=== PATIENT | female | born 2005 | race Caucasian/White ===

== ENCOUNTER 2023-03-03 17:33 | Emergency (ER) | payer BC ==
[2023-03-03] MEDS ORDERED: FAMOTIDINE 20 MG/2 ML VIAL IV ONE (18:07)
[2023-03-03] MEDS ORDERED: NA CHLORIDE 0.9% 1,000 ML ONE (18:07)
[2023-03-03] MEDS ORDERED: ONDANSETRON 4 MG/2 ML VIAL ONE (18:07)
[2023-03-03] MEDS ORDERED: DIPHENHYDRAMINE 50 MG/ML VIAL ONE (18:07)
[2023-03-03 18:14] LABS: Specific Gravity 1.028 (1.005-1.030)
[2023-03-03 18:15] LABS: Absolute Lymphocytes (CBC) 2.8 K/uL (0.7-4.9); Hematocrit 39.9 % (36.0-45.0); Lymphocytes % 24.7 % (15.3-44.8); MCV 89.6 fL (80-100); MPV 8.2 fL (7.6-11.3); RBC Red Blood Cell Count 4.45 M/uL (3.86-4.86)
[2023-03-03 18:16] LABS: Protime INR 1.03
[2023-03-03 18:21] LABS: Specific Gravity 1.029 (1.005-1.030); Urine Bacteria <20 /HPF (<20); Urine Bilirubin NEGATIVE (Negative); Urine Blood Trace (Negative); Urine Clarity Extremely Turbid (Clear); Urine Color Yellow (Yellow); Urine Glucose NEGATIVE (Negative); Urine Mucus Slight /HPF (None Seen); Urine Protein TRACE (Negative); Urine Urobilinogen Normal (Normal)
[2023-03-03 18:23] LABS: Barbiturates NEGATIVE (NEGATIVE); Benzodiazepines NEGATIVE (NEGATIVE); Cocaine NEGATIVE (NEGATIVE); METHAMPHETAM NEGATIVE (NEGATIVE); Methadone NEGATIVE (NEGATIVE); Opiates NEGATIVE (NEGATIVE); Phencyclidine NEGATIVE (NEGATIVE); THC Cannibis POSITIVE (NEGATIVE)
[2023-03-03 18:30] LABS: ALT/SGPT 29 U/L (13-56); AST/SGOT 17 U/L (15-37); Albumin 3.5 g/dL (3.4-5.0); Alkaline Phosphatase 60 U/L (45-117); BUN Blood Urea Nitrogen 18 mg/dL (7-18); Bicarbonate 28 mEq/L (21-32); Bilirubin Total 0.4 mg/dL (0.2-1.0); Glomerular Filtration Rate 92 ml/min (=/>90); Glucose Level 99 mg/dL (74-106); Magnesium 2.1 mg/dL (1.6-2.4); Protein, Total 7.5 g/dL (6.4-8.2); Sodium Level 137 mEq/L (136-145)
[2023-03-03 18:31] LABS: Bilirubin Direct < 0.1 mg/dL (0-0.2); Bilirubin Indirect, Calculated ND mg/dL (0.2-0.8)
[2023-03-03] MEDS ORDERED: MECLIZINE HCL 12.5 MG TAB ONE (19:04)
--- NOTE | 2023-03-03 20:24 | RAD REPORT ---
EXAM DESCRIPTION: CT - Head Brain Wo Cont - 03/03/2023 8:14 pm CLINICAL HISTORY: DIZZINESS Headache, drowsiness COMPARISON: <Comparisons> TECHNIQUE: All CT scans are performed using dose optimization technique as appropriate and may inclu de automated exposure control or mA/KV adjustment according to patient size. FINDINGS: No intracranial hemorrhage, hydrocephalus or extra-axial fluid collection.No areas of brai n edema or evidence of midline shift. The paranasal sinuses and mastoids are clear. The calvarium is intact. IMPRESSION: No acute intracranial abnormality.
--- NOTE | 2023-03-03 20:36 | ER ---
Nurse's Notes [facility] Name: Angela Myrick Age: 17 yrs Sex: Female : 2005 Arrival Date: 03/03/2023 Time: 17:33 Bed 5 Private MD: Diagnosis: Dizziness and giddiness;Nausea with vomiting, unspecified Presentation: 03/03 17:47 Chief complaint: Patient states: dizziness and feeling "shaky" that began approximately ss 1 hour ago. Pt is concerned and just wanting to make sure it's not an adverse effect of her home medications. Coronavirus screen: Client denies travel out of the [place] in the last 14 days. Ebola Screen: Patient denies exposure to infectious person. Patient denies travel to an Ebola-affected area in the 21 days before illness onset. 17:47 Method Of Arrival: Ambulatory ss 17:53 Initial Sepsis Screen: Does the patient meet any 2 criteria? No. Patient's initial ml4 sepsis screen is negative. Does the patient have a suspected source of infection? No. Patient's initial sepsis screen is negative. Risk Assessment: Do you want to hurt yourself or someone else? Patient reports no desire to harm self or others. Onset of symptoms. Care prior to arrival: None. Activity prior to arrival: None. 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 - Social history:: Smoking status: Reported history of juuling and/or vaping. Patient uses street drugs, marijuana, Patient/guardian denies using IV drugs. Screenin:48 [facility] ED Fall Risk Assessment (Adult) History of falling in the last 3 months, ml4 including since admission No falls in past 3 months (0 pts) Confusion or Disorientation No (0 pts) Intoxicated or Sedated No (0 pts) Impaired Gait No (0 pts) Mobility Assist Device Used No (0 pt) Altered Elimination No (0 pt) Score/Fall Risk Level 0 - 2 = Low Risk. Abuse screen: Denies threats or abuse. Nutritional screening: No deficits noted. Tuberculosis screening: No symptoms or risk factors identified. Assessment: 17:50 Reassessment: Patient appears in no apparent distress at this time. General: Appears in ml4 no apparent distress. comfortable, well groomed, Behavior is calm, cooperative, appropriate for age. Pain: Denies pain. Neuro: Level of Consciousness is awake, alert, obeys commands, Oriented to person, place, time, situation, Appropriate for age Gait is steady, Speech is normal, Facial symmetry appears normal, Pupils are PERRLA, Reports dizziness. Cardiovascular: No deficits noted. Capillary refill < 3 seconds Patient's skin is warm and dry. Respiratory: No deficits noted. Respiratory effort is even, unlabored, Respiratory pattern is regular, symmetrical. GI: No deficits noted. Abd is soft and non tender Reports nausea, vomiting, Patient currently denies abdominal pain, diarrhea. GI: Abdomen is obese. : No deficits noted. No signs and/or symptoms were reported regarding the genitourinary system. EENT: No deficits noted. No signs and/or symptoms were reported regarding the EENT system. Derm: No deficits noted. No signs and/or symptoms reported regarding the dermatologic system. Musculoskeletal: No deficits noted. No signs and/or symptoms reported regarding the musculoskeletal system. 18:22 Reassessment: orthostatics completed; pt stated dizziness upon sitting and standing vg1 next to bed; provider notified. Vital Signs: 17:47 Pulse 79; Resp 14; Temp 99.6(TE); Pulse Ox 99% on R/A; Weight 81.65 kg; Height 5 ft. 3 ss in. ; Pain 0/10; 17:49 Pulse 90; Resp 18; Pulse Ox 98% ; Pain 0/10; ml4 17:51 BP 119 / 68; zm 18:13 BP 110 / 65 Supine; Pulse 66; vg1 18:15 BP 119 / 79 Sitting; Pulse 67; vg1 18:17 BP 120 / 72 Standing; Pulse 68; vg1 20:20 BP 106 / 84; Pulse 71; Resp 15; Pulse Ox 99% on R/A; ll3 20:50 BP 106 / 84; Pulse 64; Resp 19; Pulse Ox 100% on R/A; kd3 17:47 Body Mass Index 31.89 (81.65 kg, 160.02 cm) ss 17:47 Pain Scale: Adult ss 17:49 Pain Scale: Adult ml4 Rickreall Coma Score: 17:49 Eye Response: spontaneous(4). Motor Response: obeys commands(6). Verbal Response: ml4 oriented(5). Total: 15. ED Course: 17:37 Patient arrived in ED. [id number] 17:40 SETH CasperIII, Denzel, RN is Primary Nurse. ml4 17:40 Jose Carlos Peralta PA is PHCP. cp 17:40 Charbel Estrada MD is Attending Physician. cp 17:48 Patient has correct armband on for positive identification. Placed in gown. Bed in low ml4 position. Call light in reach. Side rails up X 1. Adult w/ patient. Pulse ox on. NIBP on. Warm blanket given. Head of bed elevated. 17:48 No provider procedures requiring assistance completed. ml4 17:53 Triage completed. ml4 18:10 No apparent distress. Awaiting lab results. ml4 18:10 Initial lab(s) drawn, by me, sent to lab. Urine collected:. Inserted saline lock: 20 ml4 gauge in left antecubital area, using aseptic technique. Patient maintains SpO2 saturation greater than 95% on room air. 18:11 EKG completed in triage. Results shown to MD. Urine obtained. Labs ordered per ml4 protocol. Drawn by ED staff. 18:11 Arm band placed on right wrist. ml4 19:33 Primary Nurse role handed off by SETH CasperIII, Denzel, RN 20:09 Lidia Stevenson, RN is Primary Nurse. kd3 20:16 CT Head Brain wo Cont In Process Unspecified. EDMS 20:50 IV discontinued, intact, bleeding controlled, No redness/swelling at site. Pressure kd3 dressing applied. Administered Medications: 18:09 Drug: NS 0.9% IV 1000 ml Route: IV; Rate: 1 bolus; Site: left antecubital; ml4 20:51 Follow up: IV Status: Completed infusion; IV Intake: 900ml kd3 18:09 Drug: diphenhydrAMINE IVP 25 mg Route: IVP; Site: left antecubital; ml4 20:51 Follow up: Response: No adverse reaction kd3 18:09 Drug: Ondansetron IVP 4 mg Route: IVP; Site: left antecubital; ml4 20:50 Follow up: Response: No adverse reaction; Nausea is decreased kd3 18:09 Drug: Famotidine IVP 20 mg Route: IVP; Site: left antecubital; ml4 20:50 Follow up: Response: No adverse reaction kd3 18:56 Drug: Meclizine PO 25 mg Route: PO; ml4 20:50 Follow up: Response: No adverse reaction kd3 Medication: 17:49 VIS not applicable for this client. ml4 Intake: 20:51 IV: 900ml; Total: 900ml. kd3 Outcome: 20:35 Discharge ordered by MD. cp 20:50 Discharged to home ambulatory. kd3 20:50 Condition: stable 20:50 Discharge instructions given to patient, Instructed on discharge instructions, follow up and referral plans. medication usage, Demonstrated understanding of instructions, follow-up care, medications, Prescriptions given X 2. 20:51 Patient left the ED. kd3 Signatures: Dispatcher [employer] EDMS Lacey Fisher, RN RN Jose Carlos Andino PA PA cp Garcia, Victoria, RN RN vg1 Fernanda Ca Jennifer [email or web address] Melany Fulton RN RN ll3 Lidia Stevenson RN RN kd3 Mckenna Short RNIII, Denzel, RN RN ml4
--- NOTE | 2023-03-03 20:36 | EDPHYS ---
Physician Documentation [facility] Name: Angela Myrick Age: 17 yrs Sex: Female : 2005 Arrival Date: 03/03/2023 Time: 17:33 Bed 5 Private MD: ED Physician Charbel Estrada HPI: 03/03 17:55 This 17 yrs old Female presents to ER via Ambulatory with complaints of Dizziness, cp Nausea/Vomiting. 17:55 The patient presents with dizziness, feeling faint, lightheadedness, "feeling shaky". cp Onset: The symptoms/episode began/occurred 1 hour(s) ago. 17:55 Context: just prior to the episode the patient experienced no apparent symptoms. cp Associated signs and symptoms: Pertinent positives: nausea, vomiting, Pertinent negatives: abdominal pain, chest pain, focal weakness, head injury, numbness. Severity of symptoms: in the emergency department the symptoms are unchanged. Patient's baseline: Neuro: alert and fully oriented, Motor: no deficits, Ambulation: walks without assistance, Speech: normal. 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 - Social history:: Smoking status: Reported history of juuling and/or vaping. Patient uses street drugs, marijuana, Patient/guardian denies using IV drugs. ROS: 18:00 Constitutional: Negative for body aches, chills, fever, poor PO intake. cp 18:00 Eyes: Negative for injury, pain, redness, and discharge. cp 18:00 Cardiovascular: Negative for chest pain, edema. 18:00 Respiratory: Negative for cough, shortness of breath, wheezing. 18:00 Abdomen/GI: Positive for nausea and vomiting, Negative for abdominal pain, diarrhea, constipation. 18:00 Neuro: Positive for dizziness. 18:00 ENT: Negative for drainage from ear(s), ear pain, sore throat, difficulty swallowing, cp difficulty handling secretions. 18:00 : Negative for urinary symptoms. 18:00 All other systems are negative. cp Exam: 18:10 Constitutional: The patient appears in no acute distress, alert, awake, non-toxic, well cp developed, well nourished, overweight 18:10 Head/Face: Normocephalic, atraumatic. cp 18:10 Eyes: Periorbital structures: appear normal, Pupils: equal, round, and reactive to light and accomodation, Extraocular movements: intact throughout, Conjunctiva: normal, no exudate, no injection, Sclera: no appreciated abnormality, Lids and lashes: appear normal, bilaterally. 18:10 ENT: External ear(s): are unremarkable, Nose: is normal, Mouth: Lips: moist, Oral mucosa: moist, Posterior pharynx: Airway: no evidence of obstruction, patent. 18:10 Neck: ROM/movement: is normal, is supple, without pain, no range of motions limitations. 18:10 Chest/axilla: Inspection: normal. 18:10 Cardiovascular: Rate: normal, Rhythm: regular, Edema: is not appreciated, JVD: is not appreciated. 18:10 Respiratory: the patient does not display signs of respiratory distress, Respirations: normal, no use of accessory muscles, no retractions, labored breathing, is not present, Breath sounds: are clear throughout, no decreased breath sounds, no stridor, no wheezing. 18:10 Abdomen/GI: Exam negative for discomfort, distension, guarding, Inspection: abdomen appears normal. 18:10 Neuro: Orientation: to person, place \\T\\ time. Mentation: is normal, Cerebellar function: Romberg testing is negative, Motor: moves all fours, strength is normal, Sensation: is normal, Gait: is steady, at a normal pace, without difficulty. 18:35 ECG was reviewed by the Attending Physician. cp Vital Signs: 17:47 Pulse 79; Resp 14; Temp 99.6(TE); Pulse Ox 99% on R/A; Weight 81.65 kg; Height 5 ft. 3 ss in. ; Pain 0/10; 17:49 Pulse 90; Resp 18; Pulse Ox 98% ; Pain 0/10; ml4 17:51 BP 119 / 68; zm 18:13 BP 110 / 65 Supine; Pulse 66; vg1 18:15 BP 119 / 79 Sitting; Pulse 67; vg1 18:17 BP 120 / 72 Standing; Pulse 68; vg1 20:20 BP 106 / 84; Pulse 71; Resp 15; Pulse Ox 99% on R/A; ll3 20:50 BP 106 / 84; Pulse 64; Resp 19; Pulse Ox 100% on R/A; kd3 17:47 Body Mass Index 31.89 (81.65 kg, 160.02 cm) ss 17:47 Pain Scale: Adult ss 17:49 Pain Scale: Adult ml4 Gregory Coma Score: 17:49 Eye Response: spontaneous(4). Motor Response: obeys commands(6). Verbal Response: ml4 oriented(5). Total: 15. MDM: 17:40 Patient medically screened. 18:00 Differential diagnosis: cardiac arrhythmia, hypovolemia, idiopathic dizziness, cp , vertigo, UTI. 20:35 Data reviewed: vital signs, nurses notes, lab test result(s), EKG, radiologic studies, cp CT scan. 20:35 I considered the following discharge prescriptions or medication management in the emergency department Medications were administered in the Emergency Department. See MAR. Counseling: I had a detailed discussion with the patient and/or guardian regarding: the historical points, exam findings, and any diagnostic results supporting the discharge/admit diagnosis, lab results, radiology results, to return to the emergency department if symptoms worsen or persist or if there are any questions or concerns that arise at home. Response to treatment: the patient's symptoms have markedly improved after treatment, and as a result, I will discharge patient. 03/03 17:52 Order name: Basic Metabolic Panel; Complete Time: 18:38 03/03 18:46 Interpretation: Reviewed. 03/03 17:52 Order name: CBC with Diff; Complete Time: 18:38 03/03 18:39 Interpretation: Normal except: WBC 11.30. 03/03 17:52 Order name: LFT's; Complete Time: 18:38 03/03 18:45 Interpretation: Normal except: GLOB 4.0; A/G 0.9. 03/03 17:52 Order name: Magnesium; Complete Time: 18:38 03/03 17:52 Order name: PT-INR; Complete Time: 18:38 03/03 17:52 Order name: Urinalysis W/Microscopic; Complete Time: 18:38 03/03 18:39 Interpretation: Normal except: [facility] Extremely Turbid; UBLD Trace; UPROT TRACE; UESTR cp 75; URBC 5-10; SQEPI 20-50; ANABELLA Cx 1+. 03/03 17:52 Order name: PREGU; Complete Time: 18:38 cp 03/03 17:52 Order name: UDS; Complete Time: 18:38 cp 03/03 18:39 Interpretation: Normal except: THC POSITIVE. cp 03/03 18:46 Order name: CT Head Brain wo Cont; Complete Time: 20:32 cp 03/03 17:52 Order name: EKG; Complete Time: 17:53 cp 03/03 17:52 Order name: Orthostatics; Complete Time: 18:21 cp 03/03 17:52 Order name: Cardiac monitoring; Complete Time: 18:09 cp 03/03 17:52 Order name: EKG - Nurse/Tech; Complete Time: 18:58 cp 03/03 17:52 Order name: IV Saline Lock; Complete Time: 18:09 cp 03/03 17:52 Order name: Labs collected and sent; Complete Time: 18:09 cp 03/03 17:52 Order name: O2 Per Protocol; Complete Time: 18:09 cp 03/03 17:52 Order name: O2 Sat Monitoring; Complete Time: 18:09 cp 03/03 17:52 Order name: Accucheck Blood Glucose; Complete Time: 18:09 cp EC:35 Rate is 63 beats/min. Rhythm is regular. VA interval is normal. QRS interval is normal. cp QT interval is normal. T waves are Inverted in lead aVR. Interpreted by me. Reviewed by me. Administered Medications: 18:09 Drug: NS 0.9% IV 1000 ml Route: IV; Rate: 1 bolus; Site: left antecubital; ml4 20:51 Follow up: IV Status: Completed infusion; IV Intake: 900ml kd3 18:09 Drug: diphenhydrAMINE IVP 25 mg Route: IVP; Site: left antecubital; ml4 20:51 Follow up: Response: No adverse reaction kd3 18:09 Drug: Ondansetron IVP 4 mg Route: IVP; Site: left antecubital; ml4 20:50 Follow up: Response: No adverse reaction; Nausea is decreased kd3 18:09 Drug: Famotidine IVP 20 mg Route: IVP; Site: left antecubital; ml4 20:50 Follow up: Response: No adverse reaction kd3 18:56 Drug: Meclizine PO 25 mg Route: PO; ml4 20:50 Follow up: Response: No adverse reaction kd3 Disposition Summary: 03/03/23 20:35 Discharge Ordered Location: Home cp Problem: new cp Symptoms: have improved cp Condition: Stable cp Diagnosis - Dizziness and giddiness cp - Nausea with vomiting, unspecified cp Followup: cp - With: Private Physician - When: 2 - 3 days - Reason: Recheck today's complaints Discharge Instructions: - Discharge Summary Sheet cp - Dizziness cp - Nausea and Vomiting, Adult cp - Form - Excuse from Work, School, or Physical Activity cp Forms: - Medication Reconciliation Form cp - Thank You Letter cp - Antibiotic Education cp - Prescription Opioid Use cp Prescriptions: - Meclizine 25 mg Oral Tablet - take 1 tablet by ORAL route every 8 hours As needed; 30 tablet; Refills: 0, cp Product Selection Permitted - Zofran 4 mg Oral Tablet - take 1 tablet by ORAL route every 12 hours As needed; 20 tablet; Refills: 0, cp Product Selection Permitted Addendum: 03/05/2023 20:03 Co-signature as Attending Physician, Charbel Estrada MD I reviewed the patient's care r n provided by the Advanced Practice Provider and agree with the diagnosis and treatment plan. Signatures: Dispatcher [employer] Charbel Felix MD MD rn Page, Corey, PA PA cp Lembo, RNIII, SETH Mahoney RN ml4 Lidia Stevenson RN kd3
[2023-03-03 21:02] VITALS: TEMP 99.6
[2023-03-03 21:22] VITALS: BP 106/84
[2023-03-03 21:24] VITALS: O2SAT 100
--- NOTE | 2023-03-05 17:53 | EKG ---
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
== END 2023-03-03 20:51 | disposition home or self-care (01) ==
LOC: ER 17:33
DX: R11.2 Nausea with vomiting, unspecified (principal)
CPT/HCPCS: 96361; 93005; 85025; 81001; 80048; 36415; 83735; 81025; 85610; 80076; 80307; 70450; 96375; 96374; 99285; J8597; J1200; J2405; J7030

== ENCOUNTER 2024-09-08 13:57 | Emergency (ER) | payer BC ==
--- OUTSIDE RECORDS SUMMARY | 2024-09-08 14:01 | XMS REPORT | Continuity of Care Document ---
Author Name Unknown Address [address] [facility] [place] [address] [facility] Address [address] [facility] [place] [address] Care Team Providers Care Public Housing Interviewer Name Role Phone Pcp, Patient Does Not Have A Primary Care Physic guicho ELVA MCBRIDE Attending Clinician MEGAN Smith Attending Clinician KATHERINE Myers Attending Clinician KATHERINE León Attending Clinician Katherine León MD Attending Clinician [phone]- [phone] KARLA ALMEIDA Attending Clinician Unavailable KARLA ALMEIDA Attending Clinician Unavailable Elva Mcbride CNM Attending Clinician AVELINA_GCBZW_Kagonzaloyala_S Attending Clinician Unavaila ble GC_DOCC_Iman Attending Clinician Unavail able GC_GCBZW_Kadiyala_S Admitting Clinician Unavaila ble AVELINA_DOCC_Iman Admitting Clinician Unavail able Payers Payer Name Policy Type Policy Number Effective Date Expirati on Date Source [employer] OUT OF [place] [id number] 2021 00:[id number] 2021 00[place]00[place] [id number] 2021 00:00:00 Problems Condition Name Condition Details Condition Category Status Onset Date Resolution Date Last Treatment Date Treating Clinician Comments Source Morbid obesity Morbid obesity Disease Active 05-29 00:00: 00 [facility] Anxiety and depression Anxiety and depression Disease Active 05-27 00:00: 00 [facility] Allergies, Adverse Reactions, Alerts Allergy Name Allergy Type Status Severity Reaction(s) Onset Date Inactive Date Treating Clinician Comments Source NO KNOWN ALLERGIE S Drug Class Active [facility] Social History Social Habit Start Date Stop Date Quantity Comments Source [facility] Tobacco use and exposure 2024-05-27 00:00:00 2024-05-27 00:00:00 Smokeless tobacco non-user [facility] Alcoholic beverage intake 2024-05-27 00:00:00 2024-05-27 00:00:00 Current drinker of alcohol (finding) [facility] History of Social function 2024-05-27 00:00:00 2024-05-27 00:00:00 [facility] Alcohol Comment 2024-05-27 00:00:00 2024-05-27 00:00:00 socially [facility] Sex assigned at 2005 00:00:00 2005 00:00:00 [facility] Smoking Status Start Date Stop Date Source Never smoked tobacco [facility] Immunizations Ordered Immunization Name Filled Immunization Name Date Status Comments Source HPV9 2024-05-27 00:00:00 Completed [facility] HPV9 2023-10-23 00:00:00 Completed [facility] HPV9 Unknown Completed [facility] Vital Signs Vital Name Observation Time Observation Value Comments S silas Systolic blood pressure 2024-05-27 20:28:00 133 mm[Hg] [facility] Diastolic blood pressure 2024-05-27 20:28:00 86 mm[Hg] [facility] Heart rate 2024-05-27 20:28:00 87 /min [facility] Body temperature 2024-05-27 20:23:00 36.44 Estee [facility] Respiratory rate 2024-05-27 20:23:00 18 /min [facility] Body height 2024-05-27 20:23:00 162.6 cm [facility] Body weight 2024-05-27 20:23:00 113.881 kg [facility] BMI 2024-05-27 20:23:00 43.09 kg/m2 [facility] Procedures Procedure Date / Time Performed Performing Clinician Source THYROID STIMULATING HORMONE 2024-05-27 21:18:00 Elva Mcbride [facility] LIPID PANEL (65322)(TOTAL CHOLESTEROL, TRIGLYCERIDES, HDL) 2024-05-27 21:18:00 Elva Mcbride [facility] CBC WITH DIFF 2024-05-27 21:18:00 Elva Mcbride [facility] GLYCOSYLATED HEMOGLOBIN (A1C) 2024-05-27 21:18:00 Elva Mcbride [facility] RUBELLA SCREEN IGG 2024-05-27 21:18:00 Ashlee Mcbride [facility] HCV ANTIBODY 2024-05-27 21:18:00 [facility] GC & CHLAMYDIA AMPLIFIED ASSAY 2024-05-27 21:18:00 Elva Mcbride [facility] HIV 1/2 AG-AB WITH REFLEX 2024-05-27 21:18:00 Elva Mcbride [facility] SYPHILIS IGG/IGM 2024-05-27 21:18:00 Elva Mcbride [facility] GARDASIL 9 (HPV 9V) VACCINE 2024-05-27 20:35:55 Megan Liu [facility] Encounters Start Date/Time End Date/Time Encounter Type Admission Type Attending Clinicians Care Facility Care Department Encounter ID Source 2024-10-08 13:30:00 2024-10-08 13:30:00 Outpatient R [facility] [id number] [facility] 2024-09-11 13:30:00 2024-09-11 13:30:00 Outpatient R JLUIS Ojeda, KATHERINE Ojeda, KATHERINE [facility] [id number] [facility] 2024-09-08 00:00:00 2024-09-08 09:05:45 Telephone Katherine Marr [facility] [id number] [facility] 2024-09-05 10:30:00 2024-09-05 10:30:00 Outpatient R KARLA ALMEIDA VIEN [facility] [id number] [facility] 2024-08-25 12:45:00 2024-08-25 12:45:00 Outpatient R [facility] [id number] [facility] 2024-05-27 15:00:00 2024-05-27 16:13:50 Office Visit Elva Mcbride [facility] CREDIT CARD [facility] [id number] [facility] 2024-05-27 15:00:00 2024-05-27 16:13:50 Outpatient R ELVA MCBRIDE [facility] [id number] [facility] 2023-12-27 00:00:00 2023-12-27 00:00:00 Outpatient GC_GCBZW_Ka gonzaloyala_S [facility] PRIV [id number] [facility] 2023-12-09 00:00:00 2023-12-09 00:00:00 Outpatient GC_SWHAOMC_ Iman [facility] [id number] [facility] 2023-11-20 00:00:00 2023-11-20 00:00:00 Outpatient GC_SWHAOMC_ Iman [facility]IV [id number] [facility] 2023-10-18 00:00:00 2023-10-18 00:00:00 Outpatient AVELINA_MIREYA_ Iman [facility] [id number] [facility] 2023-10-16 00:00:00 2023-10-16 00:00:00 Outpatient DICK_ Iman [facility] [id number] [facility] Results Test Description Test Time Test Comments Results Result Co mments Source [facility] (TERRENCE[facility] [id number] 18:20:06 * Test Item Value Reference Range Interpretation Comme [facility] Rubella screen IgG (test code = 2335171634) Positive Negative ANETA (test code = ANETA) Positive - Indicat es the patient was exposed to Rubella through infection or vaccination.Negative - Indicates the patient could be susceptible to Rubella infection.Equivocal - A second specimen should be sent. [facility] SYPHILIS IGG/[id number] 16:28:30* Test Item Value Reference Range Interpretation Comme [facility] Syphilis IgG/IgM (test code = 71485-6) Non-reactive Non-reactive ANETA (test code = ANETA) Non-reactive - No serologic evidence of T. pallidum infection. Cannot exclude incubating or early syphilis. Submit a second specimen in 2-4 weeks if syphilis is clinically suspected. Equivocal - Further testing to follow. Reactive - Further testing to follow. Lab Interpretation (test code = 45173-4) Normal [facility] AG-AB WITH [id number] 09:05:35* Test Item Value Reference Range Interpretation Comme [facility] HIV Semi-quantitative (test code = 81477-6) 0.08 Negative ANETA (test code = ANETA) Non-reactive for HIV-1 antigen and HIV-1/HIV-2 antibodies. ?No laboratory evidence of HIV infection. ?Repeat in 2-4 weeks if acute HIV infection is suspected. [facility] [id number] 07:52:05* Test Item Value Reference Range Interpretation Comme [facility] HCV Ab (test code = 25997-7) Negative HCV Semi-Quantitative (test code = 18751-4) 0.01 [facility] [id number] 07:34:26 * Test Item Value Reference Range Interpretation Comme nts TSH (test code = 7781776977) 1.82 0.45-4.70 Lab Interpretation (test cod e = 05983-9) [facility] (27558)(TOTAL CHOLESTEROL, TRIGLYCERIDES, HDL)2024-05-28 05:11:21* Test Item Value Reference Range Interpretation Comme nts CHOL (test code = 3877823062) 195 mg/dL 120-200 HDL (test code = 3706536436) 44 mg/dL >=50 L HDLC RATIO (test code = 1439903461) 4.4 <=4.5 TRIG (test code = 4240157600) 133 mg/dL 30-170 LDL CHOL (test code = 33601-3) 124 mg/dL <=160 VLDL (test code = 4612362456) 27 mg/dL 5-60 Lab Interpretation (test cod e = 81865-1) Abnormal [facility] WITH [id number] 04:29:35* Test Item Value Reference Range Interpretation Comme nts WBC (test code = 6690-2) 14.01 4.30-11.10 H RBC (test code = 789-8) 4.32 3.93-5.25 HGB (test code = 718-7) 12.8 g/dL 11.6-15.0 HCT (test code = 4544-3) 38.7 % 35.7-45.2 MCV (test code = 787-2) 89.6 fL 80.6-95.5 MCH (test code = 785-6) 29.6 pg 25.9-32.8 MCHC (test code = 786-4) 33.1 g/dL 31.6-35.1 RDW-SD (test code = 07358-5) 40.8 fL 39.0-49.9 RDW-CV (test code = 788-0) 12.4 % 12.0-15.5 PLT (test code = 777-3) 342 166-358 MPV (test code = 43522-4) 10.0 fL 9.5-12.9 NRBC/100 WBC (test code = 4255686328) 0.0 0.0-10.0 NRBC x10^3 (test code = 4958112286) See_Comment [Automated messa ge] The system which generated this result transmitted reference range: 10*3/?L. The reference range was not used to interpret this result as normal/abnormal. GRAN MAT (NEUT) % (test code = 770-8) 65.2 % IMM GRAN % (test code = 4654503586) 0.60 % LYMPH % (test code = 736-9) 24.8 % MONO % (test code = 5905-5) 8.1 % EOS % (test code = 713-8) 0.9 % BASO % (test code = 706-2) 0.4 % GRAN MAT x10^3(ANC) (test code = 4662134689) 9.13 10*3/uL 1.88-7.09 H IMM GRAN x10^3 (test code = 8988863646) 0.09 10*3/uL 0.00-0.06 H LYMPH x10^3 (test code = 731-0) 3.48 10*3/uL 1.32-3.29 H MONO x10^3 (test code = 742-7) 1.13 10*3/uL 0.33-0.92 H EOS x10^3 (test code = 711-2) 0.13 10*3/uL 0.03-0.39 BASO x10^3 (test code = 704-7) 0.05 10*3/uL 0.01-0.07 Lab Interpretation (test code = 95313-8) Abnormal [facility]
[2024-09-08 15:46] LABS: Specific Gravity > 1.030 (1.005-1.030)
[2024-09-08 15:50] LABS: Specific Gravity > 1.030 (1.005-1.030); Sqamous Epithelial <5 /HPF (None Seen); Urine Bacteria <20 /HPF (<20); Urine Bilirubin NEGATIVE (Negative); Urine Blood 3+ (OVER) (Negative); Urine Clarity Extremely Turbid (Clear); Urine Color Yellow (Yellow); Urine Crystals Unidentified Few /HPF (None Seen); Urine Culture Reflex Order REFLEXED; Urine Glucose NEGATIVE (Negative); Urine Ketones TRACE (Negative); Urine Microscopic Reflex YN ORDER UMIC; Urine Mucus Slight /HPF (None Seen); Urine Nitrite NEGATIVE (Negative); Urine Protein 1+ (Negative); Urine RBC >50 /HPF (None Seen); Urine Urobilinogen 1+ (Normal); Urine WBC >50 /HPF (<5); Urine WBC Clump Rare /HPF (None Seen); Urine Yeast (Budding) Trace /HPF (None Seen); Urine pH 5.5 (5.0-7.0)
[2024-09-08 16:01] LABS: Absolute Basophils 0.1 K/uL (0-0.5); Absolute Eosinophils 0.1 K/uL (0-0.5); Absolute Lymphocytes (CBC) 2.6 K/uL (0.7-4.9); Absolute Monocytes 0.9 K/uL (0.1-1.3); Absolute Neutrophil 8.5 K/uL (1.8-8.0); Basophils % 0.4 % (0-1.3); Eosinophils % 0.5 % (0-4.4); Hematocrit 38.4 % (36.0-45.0); Hemoglobin 12.5 g/dL (12.0-15.0); Lymphocytes % 21.5 % (15.3-44.8); MCH 28.9 pg (27.0-35.0); MCHC 32.6 g/dL (32.0-36.0); MCV 88.7 fL (80-100); MPV 7.6 fL (7.6-11.3); Monocytes % 7.4 % (3.3-12.3); Neutrophils % 70.2 % (41.7-73.7); Platelets 307 thou/uL (152-406); RBC Red Blood Cell Count 4.33 M/uL (3.86-4.86); Red Cell Distribution Width 13.8 % (12.1-15.2)
[2024-09-08 16:18] LABS: Anion Gap 9.7 mEq/L (5.0-15.0); Potassium 3.7 mEq/L (3.5-5.1)
--- NOTE | 2024-09-08 16:42 | RAD REPORT ---
EXAMINATION: US FIRST TRIMESTER TRANSVAGINAL WITH DOPPLER CLINICAL INDICATION: with vaginal bleeding TECHNIQUE: Real-time obstetrical ultrasonography of the maternal pelvis and first trimester was performed transvaginally. Color and spectral Doppler evaluation of the ovaries was performed. COMPARISON: No prior exam. FINDINGS: The uterus measures 8 x 4 x 4 cm A gestational sac is not visualized within the endometrium. Endometrial stripe measures Right ovary n ot seen secondary to overlying bowel gas. Left ovary normal in size and echotexture Right and left adnexa unremarkable No significant free fluid IMPRESSION: Non visualization of a gestational sac within the endometrium. This could be a viable intrauterine pr egnancy in which the gestational sac not seen secondary to the early gestation. Other considerations include an and even ectopic . This should be correlated clinically and with serial beta-hCG levels. Follow-up endovaginal sonogram in one week recommended for reevaluation
--- NOTE | 2024-09-08 17:06 | ER ---
Nurse's Notes [facility] Name: Angela Myrick Age: 18 yrs Sex: Female : 2005 Arrival Date: 09/08/2024 Time: 13:57 Bed 6 Private MD: Diagnosis: Abnormal uterine and vaginal bleeding, unspecified;Less than 8 weeks gestation of Presentation: 09/08 14:38 Chief complaint: Spotty vaginal bleeding x 3 days. Pt is approx 7 weeks , LMP hb 07/18. Coronavirus screen: At this time, the client does not indicate any symptoms associated with coronavirus-19. Ebola Screen: No symptoms or risks identified at this time. Initial Sepsis Screen: Does the patient meet any 2 criteria? No. Patient's initial sepsis screen is negative. Does the patient have a suspected source of infection? No. Patient's initial sepsis screen is negative. Risk Assessment: Do you want to hurt yourself or someone else? Patient reports no desire to harm self or others. Onset of symptoms was September 06, 2024. 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 - Infectious Disease History:: Denies. - Social history:: Smoking status: Reported history of juuling and/or vaping. Screenin:00 [facility] ED Fall Risk Assessment (Adult) History of falling in the last 3 months, ko1 including since admission No falls in past 3 months (0 pts) Confusion or Disorientation No (0 pts) Intoxicated or Sedated No (0 pts) Impaired Gait No (0 pts) Mobility Assist Device Used No (0 pt) Altered Elimination No (0 pt) Score/Fall Risk Level 0 - 2 = Low Risk Oriented to surroundings, Maintained a safe environment, Educated pt \T\ family on fall prevention, incl call for assistance when getting out of bed, Assessed \T\ reinforced patient's understanding of fall precautions, Hourly rounding (assess needs \T\ fall precautionary measures) done. Abuse screen: Denies threats or abuse. Denies injuries from another. Nutritional screening: No deficits noted. Tuberculosis screening: No symptoms or risk factors identified. Assessment: 15:00 Obstetrical Assessment: Patient reports vaginal bleeding. General: Appears in no ko1 apparent distress. Behavior is cooperative, appropriate for age. Pain: Denies pain. Neuro: No deficits noted. Cardiovascular: No deficits noted. Respiratory: No deficits noted. GI: No deficits noted. : No deficits noted. EENT: No deficits noted. Derm: No deficits noted. Musculoskeletal: No deficits noted. Vital Signs: 14:38 BP 154 / 54; Pulse 103; Resp 18; Temp 98.9; Pulse Ox 100% on R/A; Weight 77.11 kg; hb Height 5 ft. 4 in. ; Pain 5/10; 14:55 BP 130 / 76; Pulse 84; Resp 15; Pulse Ox 100% ; ko1 16:00 BP 118 / 74; Pulse 78; Resp 16; Pulse Ox 99% ; ko1 17:00 BP 121 / 75; Pulse 82; Resp 15; Pulse Ox 99% ; ko1 14:38 Body Mass Index 29.18 (77.11 kg, 162.56 cm) hb 14:38 Pain Scale: Adult hb ED Course: 14:01 Patient arrived in ED. mr 14:01 Rashaad Kim MD is Attending Physician. bo1 14:39 Triage completed. hb 14:40 Arm band placed on. hb 15:00 Patient has correct armband on for positive identification. Bed in low position. Call ko1 light in reach. Side rails up X2. Provided Education on: labs. Pulse ox on. NIBP on. Door closed. Noise minimized. Lights dimmed. Assisted to bathroom. 15:00 No provider procedures requiring assistance completed. ko1 15:12 Janine Aguillon, SETH is Primary Nurse. ko1 15:38 Test, Urine Sent. ko1 15:38 Quantitative Hcg Sent. ko1 15:38 Urinalysis w/ reflexes Sent. ko1 15:50 Initial lab(s) drawn, by me, sent to lab. Inserted saline lock: 22 gauge in right ap3 antecubital area, using aseptic technique. Blood collected. Flushed with 10 mL NS. 16:20 US Transvaginal Ob In Process Unspecified. EDMS 16:22 Patient moved back from ultrasound. ap3 17:10 IV discontinued, intact, bleeding controlled, No redness/swelling at site. Pressure ko1 dressing applied. Administered Medications: No medications were administered Medication: 15:00 VIS not applicable for this client. ko1 Outcome: 17:06 Discharge ordered by . bo1 17:10 Discharged to home ambulatory, with family, ko1 17:10 Condition: stable 17:10 Discharge instructions given to patient, family, Instructed on discharge instructions, follow up and referral plans. Demonstrated understanding of instructions, follow-up care, 17:16 Patient left the ED. ko1 Signatures: Dispatcher [employer] EDMS GutierrezSofiya, Reg Reg mr Renee Chandler, RN RN Randi Harris RN RN ap3 Janine Aguillon RN RN ko1 Rashaad Kim MD MD bo1 Corrections: (The following items were deleted from the chart) 17:15 15:00 BP 118 / 74; Pulse 78bpm; Resp 16bpm; Pulse Ox 99%; ko1 ko1
--- NOTE | 2024-09-08 17:06 | EDPHYS ---
Physician Documentation [facility] Name: Angela Myrick Age: 18 yrs Sex: Female : 2005 Arrival Date: 09/08/2024 Time: 13:57 Bed 6 Private MD: ED Physician Rashaad Kim HPI: 09/08 15:24 This 18 yrs old Female presents to ER via Ambulatory with complaints of Vaginal bo1 Bleeding, + Preg <12wks, Abdominal Cramping. 15:24 The patient presents to the emergency department with vaginal bleeding, that is light, bo1 described as spotting. The estimated gestational age is 7 weeks. Associated signs and symptoms: Pertinent positives: Pelvic cramping. No known trauma or cause at this time. 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 - Infectious Disease History:: Denies. - Social history:: Smoking status: Reported history of juuling and/or vaping. ROS: 16:58 Constitutional: Negative for fever, chills, and weight loss bo1 16:58 Cardiovascular: Negative for chest pain, 16:58 Respiratory: Negative for shortness of breath, 16:58 Abdomen/GI: Positive for Pelvic cramping, 16:58 : Positive for vaginal bleeding, Spotting, no clots, 16:58 Skin: Negative for rash, 16:58 All other systems are negative, Exam: 16:59 Constitutional: This is a well developed, well nourished patient who is awake, alert, bo1 and in no acute distress. 16:59 Head/face: Exam is negative for acute changes, 16:59 Eyes: Exam is negative for acute changes, 16:59 Cardiovascular: Rate: normal, Rhythm: regular, 16:59 Respiratory: the patient does not display signs of respiratory distress, Respirations: normal, no acute changes, Breath sounds: are clear throughout, 16:59 Abdomen/GI: Palpation: abdomen is soft and non-tender, 16:59 Back: CVA tenderness, is absent, 16:59 : Deferred, 16:59 Skin: no rash present. Vital Signs: 14:38 BP 154 / 54; Pulse 103; Resp 18; Temp 98.9; Pulse Ox 100% on R/A; Weight 77.11 kg; hb Height 5 ft. 4 in. ; Pain 5/10; 14:55 BP 130 / 76; Pulse 84; Resp 15; Pulse Ox 100% ; ko1 16:00 BP 118 / 74; Pulse 78; Resp 16; Pulse Ox 99% ; ko1 17:00 BP 121 / 75; Pulse 82; Resp 15; Pulse Ox 99% ; ko1 14:38 Body Mass Index 29.18 (77.11 kg, 162.56 cm) hb 14:38 Pain Scale: Adult hb MDM: 15:23 Medical Screening Exam initiated bo1 17:03 Differential diagnosis: Missed ab, vs early preg vs ectopic preg. Data reviewed: vital bo1 signs, lab test result(s), radiologic studies, ultrasound. ED course: Pt agrees to return for repeat beta HCG and ultrasound if indicated in 4-7 days. 09/08 15:24 Order name: Abo/rh Typing bo1 09/08 15:24 Order name: Basic Metabolic Panel; Complete Time: 16:25 bo1 09/08 15:24 Order name: CBC with Diff; Complete Time: 16:25 bo1 09/08 15:24 Order name: Test, Urine; Complete Time: 16:25 bo1 09/08 15:24 Order name: Quantitative Hcg; Complete Time: 16:25 bo1 09/08 15:24 Order name: Urinalysis w/ reflexes; Complete Time: 16:25 bo1 09/08 15:53 Order name: Urine Culture EDMS 09/08 15:24 Order name: US Transvaginal Ob; Complete Time: 16:46 bo1 09/08 15:24 Order name: IV Saline Lock; Complete Time: 15:50 bo1 09/08 15:24 Order name: Labs collected and sent; Complete Time: 15:50 bo1 09/08 15:24 Order name: NPO; Complete Time: 15:26 bo1 Administered Medications: No medications were administered Disposition Summary: 09/08/24 17:06 Discharge Ordered Notes: Location: Home bo1 Problem: new bo1 Symptoms: are unchanged bo1 Condition: Stable bo1 Diagnosis - Abnormal uterine and vaginal bleeding, unspecified bo1 - Less than 8 weeks gestation of bo1 Followup: bo1 - With: Emergency Department - When: 5 - 6 days - Reason: Recheck today's complaints, Continuance of care Discharge Instructions: - Discharge Summary Sheet bo1 - Vaginal Bleeding During , First Trimester bo1 Forms: - Medication Reconciliation Form bo1 - Antibiotic Education bo1 - Prescription Opioid Use bo1 - Patient Portal Instructions bo1 - Leadership Thank You Letter bo1 Signatures: Dispatcher [employer] Renee Valdes RN RN [facility] ChildrenRashaad cook MD MD bo1
[2024-09-08 17:37] VITALS: TEMP 98.9
[2024-09-08 17:39] VITALS: O2SAT 99
[2024-09-08 17:41] VITALS: BP 121/75
== END 2024-09-08 17:16 | disposition home or self-care (01) ==
LOC: ER 13:57
DX: O20.9 Hemorrhage in early pregnancy, unspecified (principal); Z3A.01 Less than 8 weeks gestation of pregnancy
CPT/HCPCS: 36415; 76817; 80048; 81001; 81025; 84702; 85025; 86900; 86901; 87086; 87088; 99284

== ENCOUNTER 2024-09-12 13:55 | Emergency (ER) | payer BC ==
--- OUTSIDE RECORDS SUMMARY | 2024-09-12 13:58 | XMS REPORT | Continuity of Care Document ---
Author Name Unknown Address [address] [facility] [place] [address] [facility] Address [address] 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 Role Phone Pcp, Patient Does Not Have A Primary Care Physic guicho ELVA MCBRIDE Attending Clinician MEGAN Smith Attending Clinician KATHERINE Myers Attending Clinician KATHERINE León Attending Clinician Katherine León MD Attending Clinician [phone] KARLA ALMEIDA Attending Clinician Unavailable KARLA ALMEIDA Attending Clinician Unavailable Elva Mcbride CNM Attending Clinician AVELINA_GCBZW_Kagonzaloyala_S Attending Clinician Unavaila ble GC_DOCC_Iman Attending Clinician Unavail able GC_GCBZW_Kadiyala_S Admitting Clinician Unavaila ble AVELINA_DOCC_Iman Admitting Clinician Unavail able Payers Payer Name Policy Type Policy Number Effective Date Expirati on Date Source [place] OUT OF [place] [id number] 2021 00:[place] [id number] 2021 00[place] [id number] 2021 00:00:00 Problems Condition Name Condition Details Condition Category Status Onset Date Resolution Date Last Treatment Date Treating Clinician Comments Source Morbid obesity Morbid obesity Disease Active 05-29 00:00: 00 [facility] Anxiety and depression Anxiety and depression Disease Active 05-27 00:00: 00 [facility] Allergies, Adverse Reactions, Alerts Allergy Name Allergy Type Status Severity Reaction(s) Onset Date Inactive Date Treating Clinician Comments Source NO KNOWN ALLERGIE S Drug Class Active [facility] Social History Social Habit Start Date Stop Date Quantity Comments Source [facility] Tobacco use and exposure 2024-05-27 00:00:00 2024-05-27 00:00:00 Smokeless tobacco non-user [facility] Alcoholic beverage intake 2024-05-27 00:00:00 2024-05-27 00:00:00 Current drinker of alcohol (finding) [facility] History of Social function 2024-05-27 00:00:00 2024-05-27 00:00:00 [facility] Alcohol Comment 2024-05-27 00:00:00 2024-05-27 00:00:00 socially [facility] Sex assigned at 2005 00:00:00 2005 00:00:00 [facility] Smoking Status Start Date Stop Date Source Never smoked tobacco [facility] Immunizations Ordered Immunization Name Filled Immunization Name Date Status Comments Source HPV9 2024-05-27 00:00:00 Completed [facility] HPV9 2023-10-23 00:00:00 Completed [facility] HPV9 Unknown Completed [facility] Vital Signs Vital Name Observation Time Observation Value Comments S silas Systolic blood pressure 2024-05-27 20:28:00 133 mm[Hg] [facility] Diastolic blood pressure 2024-05-27 20:28:00 86 mm[Hg] [facility] Heart rate 2024-05-27 20:28:00 87 /min [facility] Body temperature 2024-05-27 20:23:00 36.44 Estee [facility] Respiratory rate 2024-05-27 20:23:00 18 /min [facility] Body height 2024-05-27 20:23:00 162.6 cm [facility] Body weight 2024-05-27 20:23:00 113.881 kg [facility] BMI 2024-05-27 20:23:00 43.09 kg/m2 [facility] Procedures Procedure Date / Time Performed Performing Clinician Source THYROID STIMULATING HORMONE 2024-05-27 21:18:00 Elva Mcbride [facility] LIPID PANEL (52070)(TOTAL CHOLESTEROL, TRIGLYCERIDES, HDL) 2024-05-27 21:18:00 Elva Mcbride [facility] CBC WITH DIFF 2024-05-27 21:18:00 Elva Mcbride [facility] GLYCOSYLATED HEMOGLOBIN (A1C) 2024-05-27 21:18:00 Elva Mcbride [facility] RUBELLA SCREEN IGG 2024-05-27 21:18:00 Ashlee Mcbride [facility] HCV ANTIBODY 2024-05-27 21:18:00 [facility] GC & CHLAMYDIA AMPLIFIED ASSAY 2024-05-27 21:18:00 Elva Mcbride [facility] HIV 1/2 AG-AB WITH REFLEX 2024-05-27 21:18:00 Elva Mcbride [facility] SYPHILIS IGG/IGM 2024-05-27 21:18:00 Elva Mcbride [facility] GARDASIL 9 (HPV 9V) VACCINE 2024-05-27 20:35:55 Megan Liu [facility] Encounters Start Date/Time End Date/Time Encounter Type Admission Type Attending Clinicians Care Facility Care Department Encounter ID Source 2024-10-08 13:30:00 2024-10-08 13:30:00 Outpatient R [facility] [id number] [facility] 2024-09-11 13:30:00 2024-09-11 13:30:00 Outpatient R JLUIS Ojeda, KATHERINE Ojeda, KATHERINE [facility] [id number] [facility] 2024-09-08 00:00:00 2024-09-08 09:05:45 Telephone Katherine Marr [facility] [id number] [facility] 2024-09-05 10:30:00 2024-09-05 10:30:00 Outpatient R KARLA ALMEIDA VIEN [facility] [id number] [facility] 2024-08-25 12:45:00 2024-08-25 12:45:00 Outpatient R [facility] [id number] [facility] 2024-05-27 15:00:00 2024-05-27 16:13:50 Office Visit Elva Mcbride [facility] [id number] [facility] 2024-05-27 15:00:00 2024-05-27 16:13:50 Outpatient R ELVA MCBRIDE [facility] [id number] [facility] 2023-12-27 00:00:00 2023-12-27 00:00:00 Outpatient GC_GCBZW_Ka gonzaloyala_S [facility] PRIV [id number] [facility] 2023-12-09 00:00:00 2023-12-09 00:00:00 Outpatient GC_SWHAOMC_ Iman [facility] PRIV [id number] [facility] 2023-11-20 00:00:00 2023-11-20 00:00:00 Outpatient GC_SWHAOMC_ Iman [facility] PRIV [id number] [facility] 2023-10-18 00:00:00 2023-10-18 00:00:00 Outpatient AVELINA_MIREYA_ Iman [facility] [id number] [facility] 2023-10-16 00:00:00 2023-10-16 00:00:00 Outpatient DICK_ Iman [facility] [id number] [facility] Results Test Description Test Time Test Comments Results Result Co mments Source [facility]RENCE[facility] [id number] 18:20:06 * Test Item Value Reference Range Interpretation Comme [facility] Rubella screen IgG (test code = 2868888471) Positive Negative ANETA (test code = ANETA) Positive - Indicat es the patient was exposed to Rubella through infection or vaccination.Negative - Indicates the patient could be susceptible to Rubella infection.Equivocal - A second specimen should be sent. [facility] SYPHILIS [id number] 16:28:30* Test Item Value Reference Range Interpretation Comme [facility] Syphilis IgG/IgM (test code = 47127-8) Non-reactive Non-reactive ANETA (test code = ANETA) Non-reactive - No serologic evidence of T. pallidum infection. Cannot exclude incubating or early syphilis. Submit a second specimen in 2-4 weeks if syphilis is clinically suspected. Equivocal - Further testing to follow. Reactive - Further testing to follow. Lab Interpretation (test code = 27225-9) Normal [facility]2 AG-AB WITH [id number] 09:05:35* Test Item Value Reference Range Interpretation Comme [facility] HIV Semi-quantitative (test code = 15299-2) 0.08 Negative ANETA (test code = ANETA) Non-reactive for HIV-1 antigen and HIV-1/HIV-2 antibodies. ?No laboratory evidence of HIV infection. ?Repeat in 2-4 weeks if acute HIV infection is suspected. [facility]HCV [id number] 07:52:05* Test Item Value Reference Range Interpretation Comme [facility] HCV Ab (test code = 37512-0) Negative HCV Semi-Quantitative (test code = 00867-4) 0.01 [facility] [id number] 07:34:26 * Test Item Value Reference Range Interpretation Comme nts TSH (test code = 5679223678) 1.82 0.45-4.70 Lab Interpretation (test cod e = 31476-5) Normal [facility]IP[facility] PAN[facility] (69281)(TOTAL CHOLESTEROL, TRIGLYCERIDES, HDL)2024-05-28 05:11:21* Test Item Value Reference Range Interpretation Comme nts CHOL (test code = 2579104254) 195 mg/dL 120-200 HDL (test code = 2000671390) 44 mg/dL >=50 L HDLC RATIO (test code = 7759729884) 4.4 <=4.5 TRIG (test code = 1379160363) 133 mg/dL 30-170 LDL CHOL (test code = 93611-8) 124 mg/dL <=160 VLDL (test code = 3995565879) 27 mg/dL 5-60 Lab Interpretation (test cod e = 98378-0) Abnormal [facility] WITH [id number] 04:29:35* Test Item Value Reference Range Interpretation [...] 33.1 g/dL 31.6-35.1 RDW-SD (test code = 97820-6) 40.8 fL 39.0-49.9 RDW-CV (test code = 788-0) 12.4 % 12.0-15.5 PLT (test code = 777-3) 342 166-358 MPV (test code = 62341-8) 10.0 fL 9.5-12.9 NRBC/100 WBC (test code = 1685914491) 0.0 0.0-10.0 NRBC x10^3 (test code = 5610694937) See_Comment [Automated messa ge] The system which generated this result transmitted reference range: 10*3/?L. The reference range was not used to interpret this result as normal/abnormal. GRAN MAT (NEUT) % (test code = 770-8) 65.2 % IMM GRAN % (test code = 9983237050) 0.60 % LYMPH % (test code = 736-9) 24.8 % MONO % (test code = 5905-5) 8.1 % EOS % (test code = 713-8) 0.9 % BASO % (test code = 706-2) 0.4 % GRAN MAT x10^3(ANC) (test code = 7999746453) 9.13 10*3/uL 1.88-7.09 H IMM GRAN x10^3 (test code = 1906971512) 0.09 10*3/uL 0.00-0.06 H LYMPH x10^3 (test code = 731-0) 3.48 10*3/uL 1.32-3.29 H MONO x10^3 (test code = 742-7) 1.13 10*3/uL 0.33-0.92 H EOS x10^3 (test code = 711-2) 0.13 10*3/uL 0.03-0.39 BASO x10^3 (test code = 704-7) 0.05 10*3/uL 0.01-0.07 Lab Interpretation (test code = 92612-2) Abnormal [facility]
--- NOTE | 2024-09-12 15:01 | EDPHYS ---
Physician Documentation [facility] Name: Angela Myrick Age: 18 yrs Sex: Female : 2005 Arrival Date: 09/12/2024 Time: 13:55 Bed 11 Private MD: ED Physician Jose Cralos Wolff HPI: 09/12 14:17 This 18 yrs old Female presents to ER via Ambulatory with complaints of HCG level check.cp 14:20 Patient is a 18-year-old female who returns to the emergency department for a redraw of cp her hCG levels after being seen here on 09/08/2024. No complaints today. She denies any abdominal pain, denies any vaginal bleeding and or leakage of fluids. 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 - Infectious Disease History:: Denies. - Social history:: Smoking status: Patient/guardian denies using tobacco, Stopped _ months ago 1. ROS: 14:20 Constitutional: history per hpi cp 14:20 Abdomen/GI: Negative for abdominal pain, nausea, vomiting, and diarrhea, cp 14:20 : Negative for urinary symptoms, vaginal bleeding, vaginal discharge, 14:20 All other systems are negative, Exam: 14:20 Constitutional: The patient appears in no acute distress, alert, awake, non-toxic, well cp developed, well nourished, 14:20 Head/Face: Normocephalic, atraumatic. cp 14:20 Eyes: Periorbital structures: appear normal, Conjunctiva: normal, no exudate, no injection, Sclera: no appreciated abnormality, Lids and lashes: appear normal, bilaterally, 14:20 ENT: External ear(s): are unremarkable, Nose: is normal, Mouth: Lips: moist, Oral mucosa: moist, Posterior pharynx: Airway: no evidence of obstruction, patent, 14:20 Chest/axilla: Inspection: normal, 14:20 Cardiovascular: Rate: normal, Rhythm: regular, 14:20 Respiratory: the patient does not display signs of respiratory distress, Respirations: normal, no use of accessory muscles, no retractions, labored breathing, is not present, Breath sounds: are clear throughout, no decreased breath sounds, 14:20 Abdomen/GI: Inspection: abdomen appears normal, Palpation: abdomen is soft and non-tender, in all quadrants, 14:20 Back: pain, is absent, ROM is normal, Vital Signs: 14:13 BP 147 / 101; Pulse 88; Resp 16; Temp 97.1; Pulse Ox 100% ; Weight 79.38 kg; Height 5 db ft. 4 in. ; Pain 0/10; 14:13 Body Mass Index 30.04 (79.38 kg, 162.56 cm) db 14:13 Pain Scale: Adult db MDM: 14:38 Medical Screening Exam initiated carlton 15:00 Differential diagnosis: STD, ectopic , uti. cp 17:00 Data reviewed: vital signs, nurses notes, lab test result(s), I have discussed the cp patient's presentation/case with the attending Emergency Department Physician; and as a result, I will discharge patient. 17:00 I considered the following discharge prescriptions or medication management in the cp emergency department Medications were administered in the Emergency Department. See MAR. Counseling: I had a detailed discussion with the patient and/or guardian regarding the historical points, exam findings, and any diagnostic results supporting the discharge/admit diagnosis, lab results, to return to the emergency department if symptoms worsen or persist or if there are any questions or concerns that arise at home. 09/12 14:17 Order name: HCG-Quantitative; Complete Time: 14:55 cp 09/12 14:55 Interpretation: Reviewed. cp 09/12 15:08 Order name: Rhogam cp 09/12 15:10 Order name: Rh Typing EDAK 09/12 15:10 Order name: Antibody Screen EDAK 09/12 15:10 Order name: Fetalscreen EDAK 09/12 15:10 Order name: Cord Rh type EDAK Administered Medications: 17:00 Drug: Rho D Immune Globulin IM 300 mcg IM once Route: IM; Site: right deltoid; hb Disposition Summary: 09/12/24 17:01 Discharge Ordered Notes: Location: Home(09/12/24 17:01) cp Problem: new(09/12/24 17:01) cp Symptoms: have improved(09/12/24 17:01) cp Condition: Stable(09/12/24 17:01) cp Diagnosis - Complete or unspecified spontaneous without complication(09/12/24 17:01) cp Followup: cp - With: Private Physician - When: As needed - Reason: Worsening of condition Discharge Instructions: - Discharge Summary Sheet cp - Miscarriage cp - Managing Loss cp Forms: - Medication Reconciliation Form cp - Antibiotic Education cp - Prescription Opioid Use cp - Patient Portal Instructions cp - Leadership Thank You Letter cp Addendum: 09/15/2024 14:57 Co-signature as Attending Physician, Jose Carlos Wolff MD I agree with the assessment and c gooden plan of care. Signatures: Dispatcher [employer] EDAK Jose Carlos Wolff MD MD cha Page, Corey, PA PA cp Renee Chandler, SETH RN Shey Egan RN RN db Corrections: (The following items were deleted from the chart) 09/12 15:03 15:01 Home cp cp 15:03 15:01 new cp cp 15:03 15:01 are resolved cp cp 15:03 15:01 Stable cp cp 15:03 15:01 Complete or unspecified spontaneous without complication cp cp
--- NOTE | 2024-09-12 15:01 | ER ---
Nurse's Notes [facility] Name: Angela Myrick Age: 18 yrs Sex: Female : 2005 Arrival Date: 09/12/2024 Time: 13:55 Bed 11 Private MD: Diagnosis: Complete or unspecified spontaneous without complication Presentation: 09/12 14:13 Chief complaint: Patient states: VAG BLEED TOLD TO COME BACK FOR HCG LEVEL db REDRAW 4 DAYS AGO. Coronavirus screen: Client denies travel out of the [place] in the last 14 days. At this time, the client does not indicate any symptoms associated with coronavirus-19. Ebola Screen: Patient negative for fever greater than or equal to 101.5 degrees Fahrenheit, and additional compatible Ebola Virus Disease symptoms Patient denies exposure to infectious person. Patient denies travel to an Ebola-affected area in the 21 days before illness onset. No symptoms or risks identified at this time. Initial Sepsis Screen: Does the patient meet any 2 criteria? No. Patient's initial sepsis screen is negative. Does the patient have a suspected source of infection? No. Patient's initial sepsis screen is negative. Risk Assessment: Do you want to hurt yourself or someone else? Patient reports no desire to harm self or others. Onset of symptoms was September 12, 2024. 14:13 Method Of Arrival: Ambulatory db 14:13 Acuity: KISHAN 4 db Triage Assessment: 14:14 General: Appears in no apparent distress. comfortable, Behavior is calm, cooperative. db Pain: Denies pain. : Reports vaginal bleeding that is. 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 - Infectious Disease History:: Denies. - Social history:: Smoking status: Patient/guardian denies using tobacco, Stopped _ months ago 1. Screenin:33 [facility] ED Fall Risk Assessment (Adult) History of falling in the last 3 months, db including since admission No falls in past 3 months (0 pts) Confusion or Disorientation No (0 pts) Intoxicated or Sedated No (0 pts) Impaired Gait No (0 pts) Mobility Assist Device Used No (0 pt) Altered Elimination No (0 pt) Score/Fall Risk Level 0 - 2 = Low Risk Oriented to surroundings, Maintained a safe environment. Abuse screen: Denies threats or abuse. Denies injuries from another. Nutritional screening: No deficits noted. Tuberculosis screening: No symptoms or risk factors identified. Assessment: 16:08 Reassessment: Patient appears in no apparent distress at this time. Patient and/or db family updated on plan of care and expected duration. Pain level reassessed. Patient is alert, oriented x 3, equal unlabored respirations, skin warm/dry/pink. PENDING LAB FOR RHO JUVENAL MEDICATION. STATES ANOTHER 15 MINUTES. General: Appears in no apparent distress. comfortable, Behavior is calm, cooperative. Neuro: Level of Consciousness is awake, alert, obeys commands, Oriented to person, place, time, situation. 16:33 Reassessment: Patient appears in no apparent distress at this time. Patient and/or db family updated on plan of care and expected duration. Pain level reassessed. Patient is alert, oriented x 3, equal unlabored respirations, skin warm/dry/pink. 17:03 Reassessment: Discharge pending 20 min shot wait time. hb Vital Signs: 14:13 BP 147 / 101; Pulse 88; Resp 16; Temp 97.1; Pulse Ox 100% ; Weight 79.38 kg; Height 5 db ft. 4 in. ; Pain 0/10; 14:13 Body Mass Index 30.04 (79.38 kg, 162.56 cm) db 14:13 Pain Scale: Adult db ED Course: 13:56 Patient arrived in ED. ec2 14:05 Jose Carlos Peralta PA is PHCP. cp 14:05 Jose Carlos Wolff MD is Attending Physician. cp 14:14 Triage completed. db 14:14 Arm band placed on Patient placed in an exam room. db 14:35 HCG-Quantitative Sent. nh2 14:35 Inserted saline lock: 22 gauge in right antecubital area, using aseptic technique. nh2 Blood collected. Flushed with 10 mL NS. 16:33 Patient has correct armband on for positive identification. Side rails up X 1. Provided db Education on:. 17:41 No provider procedures requiring assistance completed. IV discontinued, intact, hb bleeding controlled, No redness/swelling at site. Pressure dressing applied. Administered Medications: 17:00 Drug: Rho D Immune Globulin IM 300 mcg IM once Route: IM; Site: right deltoid; hb Medication: 16:33 VIS not applicable for this client. db Outcome: 15:01 Discharge ordered by . cp 17:01 Discharge ordered by MD. cp 17:41 Discharged to home ambulatory, with significant other, hb 17:41 Condition: stable 17:41 Discharge instructions given to patient, significant other, Instructed on discharge instructions, follow up and referral plans. medication usage, Demonstrated understanding of instructions, follow-up care, medications, 17:41 Patient left the ED. hb Signatures: Jose Carlos Peralta PA PA cp Baxter, Heather, RN RN Shey Egan RN RN db Cory Freedman MD MD ec2 Rodger Nino, Andriy nh2
[2024-09-12 18:42] VITALS: BP 147/101; TEMP 97.1; O2SAT 100
== END 2024-09-12 17:41 | disposition home or self-care (01) ==
LOC: ER 13:55
DX: O03.9 Complete or unspecified spontaneous abortion without complication (principal)
CPT/HCPCS: 36415; 86850; 85461; 86901; 84702; 96372; 99284; J2790